=== PATIENT | male | born 1980 | race Caucasian/White ===

== ENCOUNTER → 2019-03-11 | Outpatient (CLI) | payer BC, OTHER ==
[~2019-03-11] MED LIST: NORCO 5-325 TA1 EACH PO
== END ==
LOC: RAD 12:37
DX: M47.816 Spondylosis without myelopathy or radiculopathy, lumbar region (principal); M25.521 Pain in right elbow

== ENCOUNTER → 2019-04-07 | Outpatient (CLI) | payer BC, OTHER | LOC: MRI 10:36 | DX: M47.816 Spondylosis without myelopathy or radiculopathy, lumbar region (principal); M51.24 Other intervertebral disc displacement, thoracic region; M51.26 Other intervertebral disc displacement, lumbar region; M48.061 Spinal stenosis, lumbar region without neurogenic claudication ==